=== PATIENT | female | born 1975 | race Two or more races ===

== ENCOUNTER 2022-01-14 14:37 | Emergency (ER) | payer MEDICAID ==
[2022-01-14] MEDS ORDERED: traMADol 50 MG Tab PO ONE (14:51)
[2022-01-14] MEDS ORDERED: Ibuprofen 800 MG Tab PO ONE (14:51)
== END 2022-01-14 15:32 | disposition home or self-care (01) ==
LOC: FB.ED 14:37
DX: S60.212A Contusion of left wrist, initial encounter (principal); S50.12XA Contusion of left forearm, initial encounter; Z91.048 Other nonmedicinal substance allergy status; W01.0XXA Fall on same level from slipping, tripping and stumbling without subsequent striking against object, initial encounter; Y93.41 Activity, dancing
CPT/HCPCS: 73110; 99283; A9270